=== PATIENT | female | born 1985 | race African-American/Black ===

== ENCOUNTER 2017-04-29 14:20 | Emergency (ER) | payer MEDICAID ==
[~2017-04-29] VITALS: Ht 167.6 cm; Wt 82.0 kg
[~2017-04-29 14:20] MED LIST: ACET-2178
[2017-04-29] MEDS ORDERED: ACETAMINOPHEN 325MG TABLET PO STA (14:46)
[2017-04-29] MEDS ORDERED: IPRATROPIUM/ALBUTEROL 0.5-3(2.5)MG/3ML NEB HHN ONE ×2 (15:00)
[2017-04-29] MEDS ORDERED: METHYLPREDNISOLONE SOD SUCC 125 MG/2 ML VIAL IM ONE (15:00)
[2017-04-29 16:56] VITALS: BP 119/80
== END 2017-04-29 17:01 | disposition home or self-care (01) ==
LOC: ER 15:26
DX: J45.909 Unspecified asthma, uncomplicated (principal); R07.9 Chest pain, unspecified; Z88.6 Allergy status to analgesic agent
CPT/HCPCS: 71010; 93005; 94640; 96372; 99284; J2930; J7620

== ENCOUNTER 2018-03-12 21:51 | Emergency (ER) | payer MEDICAID ==
[~2018-03-12] VITALS: Ht 170.2 cm; Wt 96.0 kg
[2018-03-13] MEDS ORDERED: SODIUM CHLORIDE 0.9% 1,000 ML IV ONE (02:22)
[2018-03-13] MEDS ORDERED: METOCLOPRAMIDE HCL 10MG/2ML VIAL IV STA (02:22)
[2018-03-13] MEDS ORDERED: ACETAMINOPHEN 325MG TABLET PO ONE (02:30)
[2018-03-13] MEDS ORDERED: DIPHENHYDRAMINE 50MG/ML VIAL IV ONE (02:30)
[2018-03-13 03:11] LABS: CHLORIDE 104 mEq/L (98-107)
[2018-03-13 03:20] LABS: BASOPHILS % 0.5 % (0.0-2.0); EOSINOPHILS % 2.1 % (0.0-5.0); HEMATOCRIT. 39.8 % (36.0-48.0); HEMOGLOBIN. 12.9 g/dL (12.0-16.0); LYMPHOCYTES % 45.7 % (20.0-50.0); MEAN CORPUSCULAR HEMOGLOBIN 23.3 pg (28.0-32.0); MEAN CORPUSCULAR VOLUME 72.1 fL (81.0-99.0); MEAN PLATELET VOLUME 9.4 fl (7.4-10.4); MONOCYTES % 5.6 % (2.0-8.0); NEUTROPHILS % 46.1 % (40.0-76.0); PLATELET 297 x1000/uL (130-400); RED BLOOD CELL COUNT 5.52 mill/uL (4.2-5.4); RED CELL DISTRIBUTION WIDTH 15.3 % (11.6-14.6)
[2018-03-13 05:15] LABS: CLARITY URINE CLEAR (CLEAR); COLOR URINE YELLOW (YELLOW); KETONES URINE NEGATIVE (NEGATIVE); LEUKOCYTE ESTERASE URINE NEGATIVE (NEGATIVE); NITRITE URINE NEGATIVE (NEGATIVE); OCCULT BLOOD URINE NEGATIVE (NEGATIVE); PROTEIN URINE NEGATIVE (NEGATIVE); UROBILINOGEN URINE 0.2 E.U./dL (0.2-1.0)
[2018-03-13 05:38] VITALS: BP 131/81
== END 2018-03-13 05:42 | disposition home or self-care (01) ==
LOC: ER 03-13 01:42
DX: R51 Headache (principal); R11.10 Vomiting, unspecified; J45.909 Unspecified asthma, uncomplicated; Z98.51 Tubal ligation status; Z88.6 Allergy status to analgesic agent
CPT/HCPCS: 36415; 80053; 81003; 81025; 83690; 85025; 93005; 96361; 96374; 96375; 99285; J1200; J2765; J7030; Z7610

== ENCOUNTER 2019-05-18 11:00 | Emergency (ER) | payer MEDICAID ==
[~2019-05-18] VITALS: Ht 167.6 cm; Wt 79.0 kg
[~2019-05-18 11:00] MED LIST changes: -ACET-2178; +TOPUD
[2019-05-18] MEDS ORDERED: HYDROCODONE/ACETAMINOPHEN 5/325MG TABLET PO ONE (14:45)
[2019-05-18] MEDS ORDERED: CYCLOBENZAPRINE 10MG TABLET PO ONE (14:45)
[2019-05-18 14:48] VITALS: BP 129/90
[2019-05-18 16:08] LABS: CLARITY URINE CLOUDY (CLEAR); COLOR URINE YELLOW (YELLOW); KETONES URINE NEGATIVE (NEGATIVE); LEUKOCYTE ESTERASE URINE NEGATIVE (NEGATIVE); NITRITE URINE NEGATIVE (NEGATIVE); OCCULT BLOOD URINE NEGATIVE (NEGATIVE); PH URINE 5.5 (4.5-8.0); PROTEIN URINE NEGATIVE (NEGATIVE); SPECIFIC GRAVITY URINE 1.016 (1.005-1.030); UROBILINOGEN URINE 0.2 E.U./dL (0.2-1.0)
== END 2019-05-18 16:08 | disposition home or self-care (01) ==
LOC: ER 11:00
DX: M54.5 Low back pain (principal); J45.909 Unspecified asthma, uncomplicated; V43.52XA Car driver injured in collision with other type car in traffic accident, initial encounter; Y93.89 Activity, other specified; Y92.488 Other paved roadways as the place of occurrence of the external cause; Z88.6 Allergy status to analgesic agent; Z98.51 Tubal ligation status
CPT/HCPCS: 72100; 81003; 99283

== ENCOUNTER 2019-11-18 14:33 | Emergency (ER) | payer MEDICAID ==
[~2019-11-18] VITALS: Ht 170.2 cm; Wt 101.0 kg
[2019-11-18 14:37] VITALS: BP 132/106
[2019-11-18] MEDS ORDERED: ACETAMINOPHEN 325MG TABLET PO ONE (17:30)
== END 2019-11-18 19:32 | disposition home or self-care (01) ==
LOC: ER 14:33
DX: S20.212A Contusion of left front wall of thorax, initial encounter (principal); V49.49XA Driver injured in collision with other motor vehicles in traffic accident, initial encounter; Y93.89 Activity, other specified; Y92.89 Other specified places as the place of occurrence of the external cause; Y99.8 Other external cause status; J45.909 Unspecified asthma, uncomplicated; Z88.0 Allergy status to penicillin; Z88.6 Allergy status to analgesic agent; Z91.040 Latex allergy status
CPT/HCPCS: 71101; 72040; 99284

== ENCOUNTER 2024-08-27 05:35 | Emergency (ER) | payer OTHER, MEDICAID ==
[~2024-08-27] VITALS: Ht 170.2 cm; Wt 96.0 kg
[2024-08-27 05:47] VITALS: O2SAT 97
[2024-08-27] MEDS: FAMOTIDINE 20MG/2ML VIAL IV ONE (06:17)
[2024-08-27] MEDS: DIPHENHYDRAMINE 50MG/ML VIAL IV ONE (06:17)
[2024-08-27] MEDS: KETOROLAC 30MG/ML VIAL IV ONE (06:17)
[2024-08-27] MEDS: METHYLPREDNISOLONE SOD SUCC 125MG/2ML (ACT-O-VIAL) IV ONE (06:17)
[2024-08-27 08:25] VITALS: BP 139/98; PULSE 98; RESP 18; TEMP 36.9; O2SAT 99
== END 2024-08-27 08:26 | disposition home or self-care (01) ==
LOC: ER 05:55
DX: T78.3XXA Angioneurotic edema, initial encounter (principal); J45.909 Unspecified asthma, uncomplicated; Z91.040 Latex allergy status; Z88.6 Allergy status to analgesic agent; Z88.0 Allergy status to penicillin; Z79.52 Long term (current) use of systemic steroids
CPT/HCPCS: 96374; 96375; 99284; J1200; J3490; J1885; J2919; Z7610 ×4; A4606

== ENCOUNTER 2024-08-29 08:40 | Emergency (ER) | payer OTHER, MEDICAID ==
[~2024-08-29] VITALS: Ht 170.2 cm; Wt 96.0 kg
[2024-08-29 08:46] VITALS: O2SAT 100
[2024-08-29 08:50] VITALS: BP 163/95; PULSE 84; RESP 16; TEMP 36.9; O2SAT 98
[2024-08-29 09:42] VITALS: TEMP 98.5
[2024-08-29] MEDS: FAMOTIDINE 20MG TABLET PO ONE (09:42)
[2024-08-29] MEDS: ACETAMINOPHEN 500MG TABLET PO ONE (09:42)
[2024-08-29] MEDS: DEXAMETHASONE 4MG TABLET PO ONE (09:42)
[2024-08-29] MEDS: DIPHENHYDRAMINE 25MG CAPSULE PO ONE (09:42)
[2024-08-29] MEDS ORDERED: EPIN0.3P3 IM (10:41)
== END 2024-08-29 11:08 | disposition home or self-care (01) ==
LOC: ER 08:50
DX: T78.40XA Allergy, unspecified, initial encounter (principal); J45.909 Unspecified asthma, uncomplicated; F10.90 Alcohol use, unspecified, uncomplicated; Z88.0 Allergy status to penicillin; Z88.6 Allergy status to analgesic agent; Z91.040 Latex allergy status; Y90.9 Presence of alcohol in blood, level not specified
CPT/HCPCS: 99284; J8540; Q0163